=== PATIENT | female | born 1955 | race Two or more races ===

== ENCOUNTER 2021-08-02 11:58 | Emergency (ER) | payer OTHER ==
[~2021-08-02] VITALS: Ht 162.6 cm; Wt 72.6 kg
[2021-08-02] MEDS ORDERED: SYNTHROID88 MCG PO (12:05)
[2021-08-02] MEDS ORDERED: TOPROL XL50 M1 PO (12:06)
[2021-08-02] MEDS ORDERED: ROSUVASTATIN CAL5 MG PO (12:06)
[2021-08-02] MEDS ORDERED: KETO10TA2 PO (19:54)
[2021-08-02] MEDS ORDERED: PEPCID AC20 MG PO (19:54)
== END 2021-08-02 20:20 | disposition home or self-care (01) ==
LOC: ER 11:58
DX: K80.50 Calculus of bile duct without cholangitis or cholecystitis without obstruction (principal); I10 Essential (primary) hypertension; R11.2 Nausea with vomiting, unspecified

== ENCOUNTER 2021-08-07 08:00 | Day surgery (SDC) | payer OTHER ==
[~2021-08-07] VITALS: Ht 170.2 cm; Wt 70.3 kg
[~2021-08-07 08:00] MED LIST: KETO10TA2 PO; PEPCID AC20 MG PO; ROSUVASTATIN CAL5 MG PO; SYNTHROID88 MCG PO; TOPROL XL50 M1 PO
[2021-08-07] MEDS ORDERED: PERCOCET 5-3251 EACH PO (17:06)
[2021-08-07] MEDS ORDERED: IBU600 MG PO (17:06)
[2021-08-07] MEDS ORDERED: MIRALAX17 GM PO (17:07)
[2021-08-07] MEDS ORDERED: SURFAK240 M1 PO (17:07)
[2021-08-07] MEDS ORDERED: CIPRO500 MG PO (17:07)
== END 2021-08-07 17:55 | disposition home or self-care (01) ==
LOC: CIR.AMB 08:00 → EDSTATUS 11:00 → SEC-K 13:59 → O/R 13:59 → CIR.AMB 17:55
PROVIDERS: ATTEND General Practice
DX: K80.10 Calculus of gallbladder with chronic cholecystitis without obstruction (principal)

== ENCOUNTER 2022-12-23 15:10 | Outpatient (CLI) | payer OTHER ==
[~2022-12-23 15:10] MED LIST changes: +CIPRO500 MG PO; +IBU600 MG PO; +MIRALAX17 GM PO; +PERCOCET 5-3251 EACH PO; +SURFAK240 M1 PO
== END 2022-12-23 15:14 | disposition home or self-care (01) ==
LOC: RAD 15:10
PROVIDERS: ATTEND Physical Medicine & Rehabilitation
DX: M54.59 Other low back pain (principal); M79.671 Pain in right foot; M79.672 Pain in left foot; M18.0 Bilateral primary osteoarthritis of first carpometacarpal joints

== ENCOUNTER 2023-01-06 07:10 | Outpatient (CLI) | payer OTHER | END 2023-01-06 07:15 | disposition home or self-care (01) | LOC: NUCLEAR 07:10 | PROVIDERS: ATTEND Physical Medicine & Rehabilitation | DX: M13.0 Polyarthritis, unspecified (principal) | CPT/HCPCS: 78315; A9503 ==

== ENCOUNTER 2024-07-17 16:10 | Outpatient (CLI) | payer OTHER | END 2024-07-17 16:17 | disposition home or self-care (01) | LOC: RAD 16:10 | PROVIDERS: ATTEND Family Medicine | DX: M54.2 Cervicalgia (principal); M25.511 Pain in right shoulder; S22.20XA Unspecified fracture of sternum, initial encounter for closed fracture; S27.9XXA Injury of unspecified intrathoracic organ, initial encounter; X58.XXXA Exposure to other specified factors, initial encounter; Y93.9 Activity, unspecified; Y92.9 Unspecified place or not applicable; Y99.9 Unspecified external cause status ==